=== PATIENT | female | born 1950 | race Caucasian/White ===

== ENCOUNTER 2017-05-06 09:02 | Outpatient (CLI) | payer MEDICARE ==
--- NOTE | 2017-05-06 13:00 | Mammography Report ---
BILATERAL DIGITAL SCREENING MAMMOGRAM with CAD: 05/06/17 09:02:00 CLINICAL: Routine screening. COMPARISON:None. She doesn't remember where she had a previous mammogram. FINDINGS: The breasts are almost entirely fatty. No mass, architectural distortion or suspicious calcifications. IMPRESSION: No mammographic evidence of malignancy. BI-RADS CATEGORY: 1 - - Negative RECOMMENDATION: Routine mammographic screening in one year. COMMENT: Patient follow-up letters are generated by our [employer] application.
== END 2017-05-06 09:03 | disposition home or self-care (01) ==
LOC: SPVWC 09:02
PROVIDERS: ATTEND Internal Medicine Cardiovascular Disease
DX: Z12.31 Encounter for screening mammogram for malignant neoplasm of breast (principal)
CPT/HCPCS: 77067; G0202